=== PATIENT | female | born 1950 | race Caucasian/White ===

== ENCOUNTER 2016-12-09 10:36 | Day surgery (SDC) | payer MEDICARE, OTHER ==
[2016-12-06 07:52] VITALS: BMI 19.6
[~2016-12-09 10:36] MED LIST: DEXAMETHASONE SOD PHOSPHATE 10 MG/ML 1 ML VIAL IV ONE; HYDROmorphone 1 MG/ML 1 ML SYRINGE IVP PRN; LACTATED RINGERS 1,000 ML IV SCH; ONDANSETRON 4 MG/2 ML VIAL IVP ONE; ceFAZolin 2 GM in SODIUM CHLORIDE 0.9% 100 ML IVPB ONE
[2016-12-09 11:20] VITALS: RESP 16; TEMP 97.9
[2016-12-09] MEDS ORDERED: LIDOCAINE 1% 20 ML VIAL (10MG/ML) FOR IV START INTRADERMA ONE (11:38)
[2016-12-09] MEDS ORDERED: MIDAZOLAM 2 MG/2 ML VIAL IV ONE (12:05)
[2016-12-09] MEDS ORDERED: BUPIVACAINE (PF) 0.5% 30 ML VIAL MISCELLANE ONE ×3 (12:13→12:42)
[2016-12-09] MEDS ORDERED: LIDOCAINE 2% (PF) 20 MG/ML 10ML SQ ONE ×3 (12:15→12:42)
[2016-12-09] MEDS ORDERED: fentaNYL (PF) 50 MCG/ML 2 ML AMP ONE (12:35)
[2016-12-09] MEDS ORDERED: PROPOFOL 10 MG/ML 20 ML VIAL IV ONE (12:35)
[2016-12-09] MEDS ORDERED: MIDAZOLAM 2 MG/2 ML VIAL ONE (12:35)
--- NOTE | 2016-12-09 14:16 | FL ---
EXAMINATION TYPE: FL guidance operating room, XR finger RT DATE OF EXAM: 12/09/2016 1:55 PM CLINICAL HISTORY: Osteoarthritis per order. TECHNIQUE: Fluoroscopy. Intraoperative limited views right finger. COMPARISON: None. FINDINGS: Fluoroscopic guidance was provided during external fixation procedure performed by Dr. Johann canales. A total of 39 seconds of fluoroscopic time was utilized during the procedure and 2 spot intra operative images are acquired. 2 images acquired show placement of fixating screws at second and third DIP joints in the right hand with satisfactory alignment IMPRESSION: As Above.
[2016-12-09 14:17] VITALS: BP 122/66; PULSE 57
--- NOTE | 2016-12-25 09:49 | OP ---
DATE OF SERVICE: 12/09/2016 SURGEON: AMIRA CARTER DO FRENCH DRAWER: PREOPERATIVE DIAGNOSIS: Advanced osteoarthritis PIP joints, right index and middle fingers. POSTOPERATIVE DIAGNOSIS: Advanced osteoarthritis PIP joints, right index and middle fingers. OPERATION: Arthrodesis DIP joints, right index and middle fingers, with cannulated Horacio Whipple screws. DESCRIPTION OF PROCEDURE: 66-year-old woman was taken to the operative suite where she was given IV sedation. Digital blocks were performed of her index and middle fingers. A combination of Xylocaine and Marcaine was used, both without epinephrine. The following procedure was done identically to each of the fingers. An H-shaped incision was made over the dorsal aspect of the DIP joint. Dissection taken through the skin and subcutaneous tissue. The extensor mechanism was incised transversely, exposing the joint. Collateral ligament release was performed to allow the joint to hyperflex and visualize the cortical surfaces. Rongeur was used to decorticate the bone surfaces. An attempt was made to remove surrounding osteophytes as much as possible. The joint was then thoroughly irrigated, aligned, and a guidewire was drilled from distal to proximal through distal phalanx and across the joint. C-arm fluoroscopy was used to monitor the correct position of the wire. An optimal alignment was obtained, then a 3 mm diameter Horacio Whipple screw was inserted into each finger. The maximum length available screws were used. Again, these were put in place with C-arm fluoroscopy. I was able to achieve good alignment, good stability, and good bone opposition. As stated above, this was done identically and independently for both index and middle fingers. The same size screw was used for both fingers. At completion of the procedure, tourniquet was released. The wounds were thoroughly irrigated. Redundant skin was trimmed and discarded. The skin was closed with 5-0 nylon suture. Soft, bulky dressing was applied. Patient was taken to the recovery room in satisfactory condition.
== END 2016-12-09 15:00 | disposition home or self-care (01) ==
LOC: OR 10:36
PROVIDERS: ATTEND Orthopaedic Surgery Hand Surgery
DX: M19.041 Primary osteoarthritis, right hand (principal); M25.741 Osteophyte, right hand; Z88.1 Allergy status to other antibiotic agents
CPT/HCPCS: 73140; 26860; 26861; C1713; J2250; J1100; J2001; J0690; J2405; J3010; J2704

== ENCOUNTER → 2017-04-18 | Outpatient (CLI) | payer MEDICARE, OTHER ==
--- NOTE | 2017-04-22 08:52 | MM ---
Reason for exam: screening (asymptomatic). Last mammogram was performed 1 year and 2 months ago. History: Patient is postmenopausal. Benign excisional biopsy of the left breast, 1984. Took estrogen for 5 years beginning at age 54. Took progesterone for 5 years beginning at age 54. Physical Findings: A clinical breast exam by your physician is recommended on an annual basis and results should be correlated with mammographic findings. MG 3D Screening Mammo W/Cad Bilateral CC and MLO view(s) were taken. Prior study comparison: February 21, 2016, bilateral MG 3d screening mammo w/cad. December 21, 2014, bilateral MG screening mammo w CAD. The breast tissue is heterogeneously dense. This may lower the sensitivity of mammography. No significant changes when compared with prior studies. ASSESSMENT: Benign, BI-RAD 2 RECOMMENDATION: Routine screening mammogram of both breasts in 1 year.
== END | disposition home or self-care (01) ==
LOC: RADMAMWWP 14:34
PROVIDERS: ATTEND Internal Medicine
DX: Z12.31 Encounter for screening mammogram for malignant neoplasm of breast (principal)
CPT/HCPCS: 77063; G0202

== ENCOUNTER 2018-03-26 08:47 | Emergency (ER) | payer MEDICARE, OTHER ==
[2018-03-26 08:53] VITALS: RESP 18; TEMP 98
[2018-03-26] MEDS ORDERED: IBUPROFEN 800 MG TAB PO STA (09:13)
--- NOTE | 2018-03-26 09:23 | ED ---
Skin/Abscess/FB HPI - General Chief complaint: Skin/Abscess/Foreign Body Stated complaint: MULTIPLE BEE STINGS, LEFT HAND SWELLING Time Seen by Provider: 03/26/18 08:56 Source: patient, RN notes reviewed Mode of arrival: ambulatory Limitations: no limitations - History of Present Illness Initial comments: This is a 67-year-old female who states she was stung by wasp several times on her left ring finger 2 days ago who complains of pain and swelling to her left ring finger. She did not take her ring off he states he has a lot of pain she denies any other injuries or complaints at this time. He does state the ring is taking into her finger and causing a lot of pain. She does state that she now has a pounding heart she denies any difficulty breathing from the wasp sting no prior ALLERGIES to this. MD complaint: insect bite/sting - Related Data Home Medications Medication Instructions Recorded Confirmed Calcium/Magnesium/Zinc 1 each PO DAILY 07/26/15 12/06/16 [Ibmpxgr-Ddyhlonzq-Rxhi Tablet] Potassium 500 mg PO DAILY 07/26/15 12/06/16 Vitamin E (Dl,Tocopheryl Acet) 400 unit PO DAILY 07/26/15 12/06/16 [Vitamin E] Previous Rx's Medication Instructions Recorded Ibuprofen [Motrin] 600 mg PO Q6HR PRN #20 tab 03/26/18 Allergies Allergy/AdvReac Type Severity Reaction Status Date / Time tetracycline Allergy Rash/Hives Verified 03/26/18 08:53 Review of Systems ROS Statement: Those systems with pertinent positive or pertinent negative responses have been documented in the HPI. ROS Other: All systems not noted in ROS Statement are negative. Past Medical History Past Medical History: Osteoarthritis (OA) History of Any Multi-Drug Resistant Organisms: None Reported Past Surgical History: Appendectomy, Cholecystectomy, Joint Replacement Additional Past Surgical History / Comment(s): left hip replacement, dental implants, screws in fingers right hand Past Anesthesia/Blood Transfusion Reactions: No Reported Reaction Past Psychological History: No Psychological Hx Reported Smoking Status: Never smoker Past Alcohol Use History: Occasional Past Drug Use History: None Reported - Past Family History Mother Family Medical History: Cancer General Exam - General Exam Comments Initial Comments: This is a well-developed well-nourished awake alert oriented 3 female Limitations: no limitations General appearance: alert, anxious, in distress Head exam: Present: atraumatic, normocephalic, normal inspection Eye exam: Present: normal appearance Neck exam: Present: normal inspection, full ROM Respiratory exam: Present: normal lung sounds bilaterally. Absent: respiratory distress, wheezes, rales, rhonchi, stridor Cardiovascular Exam: Present: regular rate, normal rhythm, normal heart sounds. Absent: systolic murmur, diastolic murmur, rubs, gallop, clicks Extremities exam: Present: tenderness, normal capillary refill, other ( Examination left upper extremity demonstrates swelling and ecchymosis over the dorsal aspect of the left ring finger. The ring is not very mobile. Capillary refill is maintained 2 seconds sensory is maintained marked amount of edema inhibiting ring removal.) Neurological exam: Present: alert, oriented X3, CN II-XII intact Psychiatric exam: Present: normal affect, normal mood Skin exam: Present: warm, dry, intact. Absent: normal color Course Vital Signs 03/26/18 08:48 Temperature 98 F Pulse Rate 64 Respiratory 18 Rate Blood Pressure 161/71 O2 Sat by Pulse 100 Oximetry Procedures - Procedures Initial comment: Ring cutter was used to remove the ring and then after successfully cutting through the volar aspect of the ring I was able remove it using 2 needle nose pliers Medical Decision Making - Medical Decision Making Patient will be discharged on appropriate pain medication she was advised to use ice for next 24 hours and elevation above her heart. Disposition Clinical Impression: Wasp sting, Swelling of left ring finger, Retained foreign body Disposition: HOME SELF-CARE Condition: Good Instructions: Insect Bite or Sting (ED), Swollen Joint (ED) Additional Instructions: Use ice for next 24 hours for 15-20 minutes at a time and keep her left ring finger elevated above her heart as much as possible. Prescriptions: Ibuprofen [Motrin] 600 mg PO Q6HR PRN #20 tab PRN Reason: Pain Is patient prescribed a controlled substance at d/c from ED?: No Referrals: Juliocesar Abraham MD [Primary Care Provider] - 1-2 days
[2018-03-26 09:39] VITALS: BP 138/66; PULSE 56
== END 2018-03-26 09:39 | disposition home or self-care (01) ==
LOC: EC 08:47
DX: T63.461A Toxic effect of venom of wasps, accidental (unintentional), initial encounter (principal); M79.89 Other specified soft tissue disorders; S60.042A Contusion of left ring finger without damage to nail, initial encounter; M19.90 Unspecified osteoarthritis, unspecified site; Z88.1 Allergy status to other antibiotic agents; Z96.642 Presence of left artificial hip joint; W49.04XA Ring or other jewelry causing external constriction, initial encounter; Y92.89 Other specified places as the place of occurrence of the external cause
CPT/HCPCS: 99283

== ENCOUNTER → 2018-06-12 | Outpatient (CLI) | payer MEDICARE, OTHER ==
--- NOTE | 2018-06-16 09:02 | MM ---
Reason for exam: screening (asymptomatic). Last mammogram was performed 1 year and 2 months ago. History: Patient is postmenopausal. Benign excisional biopsy of the left breast, 1984. Took estrogen for 5 years beginning at age 54. Took progesterone for 5 years beginning at age 54. Physical Findings: A clinical breast exam by your physician is recommended on an annual basis and results should be correlated with mammographic findings. MG 3D Screening Mammo W/Cad Bilateral CC and MLO view(s) were taken. Prior study comparison: April 18, 2017, bilateral MG 3d screening mammo w/cad. February 21, 2016, bilateral MG 3d screening mammo w/cad. The breast tissue is heterogeneously dense. This may lower the sensitivity of mammography. No significant changes when compared with prior studies. ASSESSMENT: Negative, BI-RAD 1 RECOMMENDATION: Routine screening mammogram of both breasts in 1 year.
== END | disposition home or self-care (01) ==
LOC: RADMAMWWP 16:54
PROVIDERS: ATTEND Internal Medicine
DX: Z12.31 Encounter for screening mammogram for malignant neoplasm of breast (principal)
CPT/HCPCS: 77063; 77067

== ENCOUNTER → 2019-10-14 | Outpatient (CLI) | payer BC, MEDICARE, OTHER ==
--- NOTE | 2019-10-15 13:28 | MM ---
Reason for exam: screening (asymptomatic). Last mammogram was performed 1 year and 4 months ago. History: Patient is postmenopausal. Benign excisional biopsy of the left breast, 1984. Took estrogen for 5 years beginning at age 54. Took progesterone for 5 years beginning at age 54. Physical Findings: A clinical breast exam by your physician is recommended on an annual basis and results should be correlated with mammographic findings. MG 3D Screening Mammo W/Cad Bilateral CC and MLO view(s) were taken. Prior study comparison: June 12, 2018, bilateral MG 3d screening mammo w/cad. April 18, 2017, bilateral MG 3d screening mammo w/cad. The breast tissue is heterogeneously dense. This may lower the sensitivity of mammography. No significant changes when compared with prior studies. ASSESSMENT: Negative, BI-RAD 1 RECOMMENDATION: Routine screening mammogram of both breasts in 1 year.
== END | disposition home or self-care (01) ==
LOC: RADMAMWWP 13:22
PROVIDERS: ATTEND Internal Medicine
DX: Z12.31 Encounter for screening mammogram for malignant neoplasm of breast (principal)
CPT/HCPCS: 77063; 77067

== ENCOUNTER → 2020-02-23 | Day surgery (SDC) | payer MEDICARE ==
[2020-02-17 09:41] VITALS: BMI 19.2
[~2020-02-23] MED LIST changes: +BACITRACIN 500 UNIT/GM OINT 28.4 GM TUBE TOPICAL ONE; +FAMOTIDINE 20 MG/2 ML VIAL IV ONE; +GLYCOPYRROLATE 0.2 MG/ML 2 ML VIAL ONE; +HYDROmorphone 0.5 MG/0.5 ML SYRINGE IVP PRN; -HYDROmorphone 1 MG/ML 1 ML SYRINGE IVP PRN; +KETAMINE 10 MG/ML 20 ML VIAL ONE; +LACTATED RINGERS 1,000 ML IV ONE; +LIDOCAINE 1% (10MG/ML) FOR IV START INTRADERMA ONE; +LIDOCAINE 1% (10MG/ML) FOR IV START INTRADERMA PRN; +LIDOCAINE 1%-EPI 1:100,000 20 ML VIAL SQ ONE; +MIDAZOLAM 2 MG/2 ML VIAL ONE; +ONDANSETRON 4 MG/2 ML VIAL ONE; +PROPOFOL 10 MG/ML 20 ML VIAL IV ONE; +SODIUM BICARB SYR (1 MEQ/ML) 10 ML SYRINGE MISCELLANE ONE; -ceFAZolin 2 GM in SODIUM CHLORIDE 0.9% 100 ML IVPB ONE; +fentaNYL (PF) 50 MCG/ML 2 ML AMP ONE
--- NOTE | 2020-02-23 09:35 | P.OP ---
Date of Procedure: 02/23/20 Preoperative Diagnosis: Right facial cyst Left facial skin lesion Postoperative Diagnosis: Same Procedure(s) Performed: Excision right facial cyst 3.5 cm with complex closure Shave excision left facial lesion 8mm Anesthesia: MAC Surgeon: Gael Schwartz Estimated Blood Loss (ml): 2 Pathology: other (Left facial lesion and right facial cyst) Condition: stable Disposition: PACU Indications for Procedure: This is a 69-year-old white female who has a slowly enlarging right facial cyst as well as a more recently developed left facial skin lesion Operative Findings: Right facial cyst which was well encapsulated, left facial skin lesion approximate 6 mm Description of Procedure: The patient was brought in the operative suite and placed in a supine position. Patient underwent induction of IV sedation by the railroad inspector after appropriate monitors were placed. The patient was prepped and draped in usual aseptic fashion. 1% lidocaine with 1-100,000 epinephrine was infused subcutaneously and field block fashion at both the right left facial sites. This was left to work for 7 minutes vasoconstrictive effect. The left facial lesion was excised a shave excision technique using a 10 blade and hemostasis gained with thermal cautery. Bacitracin ointment was placed. The right facial cyst was then excised making an elliptical incision overlying this including the overlying in as this was very close the overlying and an inferior to the overlying skin. The incision was made in the direction of the relaxed skin tension lines and was carried sharply through the skin and subcutaneous tissue down to the cyst itself. The cyst was excised directly on the capsule in order to avoid facial nerve and was excised from the surrounding tissue grossly entirely. The edges were undermined and hemostasis gained with electrocautery. The facial nerve function was intact. Due to the need for removal of overlying skin as a complex closure having to rotate tissue into the defect and the deep and superficial subcutaneous layers were then rotated into the defect and closed with inverted interrupted 5-0 Vicryl suture skin closed with running locking and simple interrupted 6-0 nylon sutures. Bacitracin ointment and a sterile dressing were placed. The patient was allowed to emerge from anesthesia having tolerated procedure well and was transferred postoperative recovery area in satisfactory condition.
[2020-02-25 09:17] VITALS: BP 104/58; PULSE 58; RESP 16; TEMP 95.9
== END | disposition home or self-care (01) ==
LOC: OR 06:54
PROVIDERS: ATTEND Otolaryngology
DX: L72.0 Epidermal cyst (principal); L82.1 Other seborrheic keratosis; Z88.1 Allergy status to other antibiotic agents; Z90.49 Acquired absence of other specified parts of digestive tract; Z96.649 Presence of unspecified artificial hip joint; Z80.0 Family history of malignant neoplasm of digestive organs
CPT/HCPCS: 88304; 88305; 11311; 11444; 13132; J2250; J2405; J0690; J3010; J2704

== ENCOUNTER 2020-08-30 08:46 | Day surgery (SDC) | payer MEDICARE ==
[2020-08-28 11:04] VITALS: BMI 19.2
[~2020-08-30 08:46] MED LIST changes: -BACITRACIN 500 UNIT/GM OINT 28.4 GM TUBE TOPICAL ONE; -DEXAMETHASONE SOD PHOSPHATE 10 MG/ML 1 ML VIAL IV ONE; -FAMOTIDINE 20 MG/2 ML VIAL IV ONE; -GLYCOPYRROLATE 0.2 MG/ML 2 ML VIAL ONE; -HYDROmorphone 0.5 MG/0.5 ML SYRINGE IVP PRN; -KETAMINE 10 MG/ML 20 ML VIAL ONE; -LACTATED RINGERS 1,000 ML IV ONE; -LIDOCAINE 1% (10MG/ML) FOR IV START INTRADERMA ONE; -LIDOCAINE 1% (10MG/ML) FOR IV START INTRADERMA PRN; -LIDOCAINE 1%-EPI 1:100,000 20 ML VIAL SQ ONE; -MIDAZOLAM 2 MG/2 ML VIAL ONE; -ONDANSETRON 4 MG/2 ML VIAL IVP ONE; -ONDANSETRON 4 MG/2 ML VIAL ONE; -PROPOFOL 10 MG/ML 20 ML VIAL IV ONE; -SODIUM BICARB SYR (1 MEQ/ML) 10 ML SYRINGE MISCELLANE ONE; -fentaNYL (PF) 50 MCG/ML 2 ML AMP ONE
[2020-08-30] MEDS ORDERED: LIDOCAINE 1% (10MG/ML) FOR IV START INTRADERMA ONE (09:35)
[2020-08-30 09:43] VITALS: RESP 16; TEMP 97.2
[2020-08-30] MEDS ORDERED: PROPOFOL 10 MG/ML 20 ML VIAL IV ONE (10:14)
--- NOTE | 2020-08-30 10:34 | P.PCN ---
Date of Procedure: 08/30/20 Procedure(s) Performed: BRIEF HISTORY: Patient is a 69-year-old pleasant male scheduled for an elective colonoscopy as a part of evaluation of prior history of colon polyps and family history of colon cancer diagnosed in her mom at age 70. Her last colonoscopy was 5 years. PROCEDURE PERFORMED: Colonoscopy. PREOPERATIVE DIAGNOSIS: History of colon polyp/family history of colon cancer IV sedation per Anesthesia. PROCEDURE: After informed consent was obtained, the patient, was brought into the endoscopy unit. IV sedation was administered by Anesthesia under continuous monitoring. Digital rectal examination was normal. Initially the Olympus CF-160 flexible video colonoscope was then inserted in the rectum, gradually advanced into the cecum without any difficulty. Careful examination was performed as the scope was gradually being withdrawn. Ileocecal valve and the appendiceal orifice were visualized and appeared normal. Prep was excellent. Mucosa of the cecum, ascending colon, transverse colon, descending colon, sigmoid colon, and rectum appeared normal. Retroflexion was performed in the rectum and no lesions were seen. The patient tolerated the procedure well. IMPRESSION: Normal-appearing colon from rectum to cecum with no evidence of colorectal neoplasia . RECOMMENDATIONS: Findings of this examination were discussed with the patient [as well as a family. She was advised to have a repeat surveillance colonoscopy in 5 years from now because of the family history of colon cancer
[2020-08-30 10:53] VITALS: BP 123/60; PULSE 51
== END 2020-08-30 11:26 | disposition home or self-care (01) ==
LOC: ORWHC2ENDO 08:46
PROVIDERS: ATTEND Internal Medicine Gastroenterology
DX: Z12.11 Encounter for screening for malignant neoplasm of colon (principal); Z86.010 Personal history of colon polyps; Z80.0 Family history of malignant neoplasm of digestive organs; Z79.82 Long term (current) use of aspirin; Z79.899 Other long term (current) drug therapy; Z88.1 Allergy status to other antibiotic agents; Z90.49 Acquired absence of other specified parts of digestive tract; Z96.642 Presence of left artificial hip joint
CPT/HCPCS: G0105; J2704

== ENCOUNTER → 2020-12-21 | Outpatient (CLI) | payer MEDICARE ==
--- NOTE | 2020-12-25 09:43 | MM ---
Reason for exam: screening (asymptomatic). Last mammogram was performed 1 year and 2 months ago. History: Patient is postmenopausal and history of other cancer. Benign excisional biopsy of the left breast, 1984. Took estrogen for 5 years beginning at age 54. Took progesterone for 5 years beginning at age 54. Physical Findings: A clinical breast exam by your physician is recommended on an annual basis and results should be correlated with mammographic findings. MG 3D Screening Mammo W/Cad Bilateral CC and MLO view(s) were taken. Prior study comparison: October 14, 2019, bilateral MG 3d screening mammo w/cad. June 12, 2018, bilateral MG 3d screening mammo w/cad. The breast tissue is heterogeneously dense. This may lower the sensitivity of mammography. No significant changes when compared with prior studies. ASSESSMENT: Benign, BI-RAD 2 RECOMMENDATION: Routine screening mammogram of both breasts in 1 year.
== END | disposition home or self-care (01) ==
LOC: RADMAMWWP 12:57
PROVIDERS: ATTEND Family Medicine
DX: Z12.31 Encounter for screening mammogram for malignant neoplasm of breast (principal); Z78.0 Asymptomatic menopausal state
CPT/HCPCS: 77063; 77067

== ENCOUNTER → 2022-07-03 | Outpatient (CLI) | payer MEDICARE ==
--- NOTE | 2022-07-03 09:39 | BD ---
EXAMINATION TYPE: Axial Bone Density DATE OF EXAM: 07/03/2022 COMPARISON: BASELINE CLINICAL HISTORY: 71 years old Female. ICD-10 CODE: Z78.0 ASYMPTOMATIC MENOPAUSAL Height: Weight: FRAX RISK QUESTIONS: Alcohol (3 or more units per day): YES Family History (Parent hip fracture): NO History of Fracture in Adulthood: YES Secondary Osteoporosis: NO Current Tobacco Use: NO RISK FACTORS HISTORY OF: Surgery to Hip(left): YES When: 2018 Family History of Osteoporosis: NO Active: YES Diet low in dairy products/other sources of calcium: NO Postmenopausal woman: YES Lost more than 2 inches in height since high school: NO MEDICATIONS: Additional Medications: NO Additional History: NO EXAM MEASUREMENTS: Bone mineral densitometry was performed using the [employer] System. Bone mineral density as measured about the Lumbar spine is: ----- L1-L4(G/cm2): 1.326 T Score Values are as follows: ----- L1: 0.0 ----- L2: 0.6 ----- L3: 1.4 ----- L4: 2.5 ----- L1-L4: 1.2 Bone mineral density BASELINE Bone mineral density about the R hip (g/cm2): 0.907 T Score values are as follows: -----R Neck: -2.0 -----R Total: -0.8 Bone mineral density BASELINE FRAX%s: The graph provided illustrates a chance for a major osteoporotic fx and a chance for the hips probability for fx in 10 years time. IMPRESSION: Normal (Values between +1 and -1 indicate normal bone mass). Consider repeating this study in 5 year s or sooner if there is some new clinical indication. NOTE: T-SCORE=SD OF THE YOUNG ADULT MEAN.
--- NOTE | 2022-07-04 18:22 | MM ---
Reason for Exam: Screening (asymptomatic). Last mammogram was performed 1 year(s) and 6 month(s) ago. Patient History: Menarche at age 11. First Full-Term at age 26. Postmenopausal. Other cancer. Estrogen for 5 years from age 54 until age 59. Progesterone for 5 years from age 54 until age 59. 1985, Benign Excisional Biopsy on the left side. Risk Values: Angy 5 year model risk: 2.3%. NCI Lifetime model risk: 6.0%. Prior Study Comparison: 06/12/2018 Bilateral Screening Mammogram, [facility]. 10/14/2019 Bilateral Screening Mammogram, [facility]. 12/21/2020 Bilateral Screening Mammogram, [facility]. Tissue Density: The breast tissue is heterogeneously dense. This may lower the sensitivity of mammography. Findings: Analyzed By CAD. There is no suspicious group of microcalcifications or new suspicious mass in either breast. Overall Assessment: Negative, BI-RAD 1 Management: Screening Mammogram of both breasts in 1 year. 1. Patient should continue monthly self breast exams. 2. A clinical breast exam by your physician is recommended on an annual basis. 3. This exam should not preclude additional follow-up of suspicious palpable abnormalities. Electronically signed and approved by: Carlos Chen M.D. Radiologist
== END | disposition home or self-care (01) ==
LOC: RADMAMWWP 07:58
PROVIDERS: ATTEND Family Medicine
DX: Z12.31 Encounter for screening mammogram for malignant neoplasm of breast (principal); M85.851 Other specified disorders of bone density and structure, right thigh; Z78.0 Asymptomatic menopausal state
CPT/HCPCS: 77063; 77067; 77080

== ENCOUNTER → 2023-07-21 | Outpatient (CLI) | payer MEDICARE ==
--- NOTE | 2023-07-22 20:41 | MM ---
Reason for Exam: Screening (asymptomatic). Last mammogram was performed 1 year(s) and 1 month(s) ago. Patient History: Menarche at age 11. First Full-Term at age 26. Postmenopausal. Patient has history of breast feeding. Other cancer. Estrogen for 5 years from age 54 until age 59. Progesterone for 5 years from age 54 until age 59. 1985, Benign Excisional Biopsy on the left side. Risk Values: Angy 5 year model risk: 2.3%. NCI Lifetime model risk: 5.7%. Prior Study Comparison: 10/14/2019 Bilateral Screening Mammogram, [facility]. 12/21/2020 Bilateral Screening Mammogram, [facility]. 07/03/2022 Bilateral MG 3D screening mammo w/cad, [facility]. Tissue Density: The breast tissue is heterogeneously dense. This may lower the sensitivity of mammography. Findings: Analyzed By CAD. There is no suspicious group of microcalcifications or new suspicious mass in either breast. Overall Assessment: Negative, BI-RAD 1 Management: Screening Mammogram of both breasts in 1 year. . Patient should continue monthly self-breast exams. A clinical breast exam by your physician is recommended on an annual basis. This exam should not preclude additional follow-up of suspicious palpable abnormalities. Note on Angy scores and lifetime risk: 1. A Angy score greater than 3% is considered moderate risk. If this is the case, consider specialist referral to assess eligibility for a risk reducing agent. 2. If overall lifetime risk for the development of breast cancer is 20% or higher, the patient may qualify for future screening with alternating mammogram and breast MRI. Electronically signed and approved by: Carlos Chen M.D. Radiologist
== END | disposition home or self-care (01) ==
LOC: RADMAMWWP 15:02
PROVIDERS: ATTEND Family Medicine
DX: Z12.31 Encounter for screening mammogram for malignant neoplasm of breast (principal); Z78.0 Asymptomatic menopausal state
CPT/HCPCS: 77063; 77067